=== PATIENT | male | born 1985 | race Caucasian/White ===

== ENCOUNTER → 2024-07-01 | Day surgery (SDC) | payer OTHER ==
[~2024-07-01] MED LIST: HYDROmorphone (PF) 1 MG/ML ONE; LIDOCAINE 1% INJ 10MG/ML (20 ML MDV) ONE; LIDOCAINE 4% LTA KIT (4 ML) TOPICAL ONE; MIDAZOLAM 2 MG/2 ML VIAL ONE; PROPOFOL 10 MG/ML 20 ML VIAL IV ONE; ROPIVACAINE 5 MG/ML 30 ML VIAL ONE; SCOPOLAMINE 1 MG/72 HR PATCH TRANSDERM ONE; SODIUM CHLORIDE 0.9% (PF) 10 ML VIAL ONE; SUCCINYLCHOLINE CHLORIDE 200 MG/10 ML VIAL IV ONE; fentaNYL (PF) 50 MCG/ML 2 ML AMP ONE
[2024-07-01 09:02] VITALS: TEMP 97.3
[2024-07-01] MEDS: IV FLUID CONTINUATION 1,000 ML IV ONE (09:12)
[2024-07-01] MEDS: LACTATED RINGERS 1,000 ML IV SCH (09:14)
[2024-07-01] MEDS: ONDANSETRON 4 MG/2 ML VIAL IVP ONE (09:22)
[2024-07-01] MEDS: DEXAMETHASONE SOD PHOSPHATE 4 MG/ML 1 ML VIAL IV ONE (09:22)
[2024-07-01] MEDS: fentaNYL (PF) 50 MCG/ML 2 ML AMP IVP PRN (09:27)
[2024-07-01] MEDS: MIDAZOLAM 2 MG/2 ML VIAL IV PRN (09:27)
[2024-07-01] MEDS: ceFAZolin 1,000 MG in SODIUM CHLORIDE 0.9% 1,000 ML IRRIGATION ONE (11:07)
[2024-07-01] MEDS: HYDROmorphone 0.5 MG/0.5 ML SYRINGE IVP PRN (13:20)
--- NOTE | 2024-07-01 13:22 | FL ---
EXAMINATION TYPE: FL guidance operating room, XR ankle complete RT DATE OF EXAM: 07/01/2024 1:03 PM COMPARISON: Pre Operative Images if available both CT/MRI or plain film CLINICAL INDICATION: Male, 38 years old with history of RIGHT ANKLE FX; TECHNIQUE: FL guidance operating room, XR ankle complete RT, multiple fluoroscopic images provided fo r procedure. Total fluoroscopy time: 30 seconds Total submitted images to PACS: 2 DAP: .2095 mGym2 Gycm2 uGym2 cGycm2 or equivalent. FINDINGS: Fluoroscopic images during internal fixation/arthroplasty demonstrate hardware in appropriate positio n. Hardware appears intact. No immediate complication identified. IMPRESSION: 1. No evidence for intraoperative complication. 2. Please see the operative/procedural note for further details. [facility], , 07/01/2024 1:19 PM
--- NOTE | 2024-07-01 13:34 | P.OP ---
Date of Procedure: 07/01/24 Preoperative Diagnosis: 1. Displaced medial malleolus fracture of right ankle 2. Loose body right ankle joint Postoperative Diagnosis: 1. Displaced medial malleolus fracture right ankle 2. Osteochondral defect right talus Procedure(s) Performed: 1. Open reduction with internal fixation right medial malleolus fracture 2. Open repair of osteochondral defect right talus with allograft. Implants: [employer] medical hook plate with associated screws Arthrex biocartilage and Tisseel Anesthesia: MIKA Surgeon: Paulie Sales Estimated Blood Loss (ml): 10 Pathology: none sent Condition: stable Disposition: PACU Description of Procedure: Prior to the patient being brought to the operating room, anesthesia administered a nerve block on the right lower extremity. The patient was taken to the operating room and placed on table supine position. Timeout was taken to confirm correct patient identifiers, correct laterality of surgery, and correct procedure. Once all staff in the room was in agreement with the timeout, the patient was induced and placed under general esthesia. A well-padded tourniquet was placed on the right thigh and a wedge beneath the right hip to internally rotate the right leg. The right leg was prepped and draped in usual manner. The right leg was exsanguinated and the tourniquet inflated to 250 mmHg. Attention directed of the anterior lateral ankle where an incision was made over the lateral gutter of the ankle joint. The incision was deepened down to the subcutaneous tissue careful to identify, void, and retract any neurovascular structures and cauterize any bleeding vessels. Blunt dissection was carried down to the ankle joint capsule. The ankle joint capsule was incised just anterior to the lateral gutter. This exposed the lateral portion of the talus where there was a suspected loose body. However it was noted that there was a full-thickness osteochondral loss on the lateral lateral body of the talus. The dorsal aspect appeared to be intact. All the loose fragments of bone and cartilage were removed. The decision was made to place bio cartilage over the defect to encourage fibrocartilage growth. The base of the defect was fenestrated with a small K wire. Bio cartilage was mixed on the back table with saline and then applied into the defect and contoured to the normal anatomy. Tisseel was then placed over the bio cartilage to the fixated in place. After the 5 minutes had elapsed, the wound was irrigated with antibiotic saline. The capsule was closed with 0 Vicryl. Subcutaneous closure was done with 4-0 Monocryl. And skin closure done with 4-0 Stratafix in a running subcuticular manner. The wedge from the right hip was removed externally rotate the right leg, and then attention directed over the medial ankle for the fracture treatment. A linear incision was made over the medial malleolus. The incision was deepened down to the subcutaneous layer careful to identify, avoid, and retract any neurovascular structures and cauterize any bleeding vessels. The periosteum was left intact over the medial side of the tibia. A straight transverse incision was made through the soft tissue at the level of the fracture. The fracture fragments were distracted to remove any interposing soft tissue or bony fragments. Once the fracture edges were clean, a reduction clamp was used to reduce the fracture. It was adjusted under fluoroscopy until there was near- anatomic alignment of the fracture. A guidewire was placed through the tip of the medial malleolus across the fracture and into the tibia. A hook plate was positioned over the medial malleolus and medial tibia. Alignment was confirmed under fluoroscopy and then the hooks were impacted into the medial malleolus. The original guidewire was positioned between the hooks of the plate. A 4.0 mm cannulated screw was then inserted over the wire and tightened until it compressed the fracture. The compression slot in the proximal aspect of the plate was then drilled eccentrically for screw placement. The screw was inserted and advanced until it engaged the plate and provided further compression across the fracture and the hooks. Fluoroscopic imaging showed acceptable alignment of the plate and screws. The last screw was a locking screw on the most proximal hole of the plate. Final fluoroscopic imaging showed near-anatomic alignment of the fracture with properly placed fixation. The wound was thoroughly irrigated with antibiotic saline. Subcutaneous closure was done with 4-0 Monocryl. Skin closure was done with 4-0 Stratafix in a running subcuticular manner. Dermal glue was placed over both incisions and covered with Steri-Strips. Arthrex jumpstart was placed over both incisions. A bulky dry dressing is applied to the right ankle. The tourniquet was released and capillary refill returned all digits on the right foot. The patient was placed in a well-padded, well molded plaster posterior mold/sugar-tong splint. The ankle was held in neutral position until the splint was dried. Anesthesia was reversed and the patient was taken recovery with vital signs stable.
--- NOTE | 2024-07-01 14:02 | P.ANPRN ---
Procedure Note - Anesthesia - Nerve Block Performed Right Popliteal Single Time Out Performed: Yes (0927) Date of Procedure: 07/01/24 Procedure Start Time: : Procedure Stop Time: :33 Location of Patient: PreOp Indication: Acute Post-Operative Pain, Requested by Surgeon Specifically requested for management of pain by DrTerrence: Paulie Sales Sedation Type: Sedate with meaningful contact maintained Preparation: Sterile Prep Position: Supine Catheter: None Needle Types: Pajunk Needle Gauge: 21 Ultrasound used to visualize needle placement: Yes Ultrasound used to observe medication spread: Yes Injectate: 0.5% Ropivacaine (see comment for volume) (15cc+10cc nacl pf) Blood Aspirated: No Pain Paresthesia on Injection Noted: No Resistance on Injection: Normal Image Stored and Saved: Yes Events: Uneventful and Well Tolerated
--- NOTE | 2024-07-01 14:03 | P.ANPRN ---
Procedure Note - Anesthesia - Nerve Block Performed Right Adductor Canal Single Time Out Performed: Yes (1027) Date of Procedure: 07/01/24 Procedure Start Time: 10:34 Procedure Stop Time: 10:37 Location of Patient: PreOp Indication: Acute Post-Operative Pain, Requested by Surgeon Specifically requested for management of pain by DrTerrence: Paulie Sales Sedation Type: Sedate with meaningful contact maintained Preparation: Sterile Prep Position: Supine Catheter: None Needle Types: Pajunk Needle Gauge: 21 Ultrasound used to visualize needle placement: Yes Ultrasound used to observe medication spread: Yes Injectate: 0.5% Ropivacaine (see comment for volume) (15cc+10cc nacl pf) Blood Aspirated: No Pain Paresthesia on Injection Noted: No Resistance on Injection: Normal Image Stored and Saved: Yes Events: Uneventful and Well Tolerated
[2024-07-01 14:16] VITALS: RESP 16
[2024-07-01] MEDS: KETOROLAC 15 MG/ML 1 ML VIAL IVP STA (14:42)
[2024-07-01 14:53] VITALS: BP 118/67; PULSE 76
== END | disposition home or self-care (01) ==
LOC: OR 08:31
PROVIDERS: ATTEND Podiatrist
DX: S82.51XA Displaced fracture of medial malleolus of right tibia, initial encounter for closed fracture (principal); M24.071 Loose body in right ankle; G89.18 Other acute postprocedural pain; X58.XXXA Exposure to other specified factors, initial encounter
CPT/HCPCS: 27766; 64447; 64445; 73610; C1713; J2250; J0330; J1100; J0690 ×2; J2405; J2003; J3010; J1171 ×2; J2795; J1885; J2704